=== PATIENT | male | born 1955 | race African-American/Black ===

== ENCOUNTER 2018-10-30 09:05 | Emergency (ER) | payer MEDICARE ==
[~2018-10-30] VITALS: Ht 172.7 cm; Wt 87.0 kg
[2018-10-30] MEDS ORDERED: IBUPROFEN 800MG TABLET PO ONE (13:15)
[2018-10-30] MEDS ORDERED: DIPHENHYDRAMINE 25MG CAPSULE PO ONE (13:15)
[2018-10-30] MEDS ORDERED: VALACYCLOVIR HCL 500MG TABLET PO SCH (13:30)
[2018-10-30 15:31] VITALS: BP 136/83
== END 2018-10-30 15:31 | disposition home or self-care (01) ==
LOC: ER 09:05
DX: G89.29 Other chronic pain (principal); M54.5 Low back pain; B02.9 Zoster without complications; I10 Essential (primary) hypertension; Z98.890 Other specified postprocedural states
CPT/HCPCS: 72131; 99284; Q0163

== ENCOUNTER 2025-02-16 12:28 | Emergency (ER) | payer MEDICAID, MEDICARE ==
[~2025-02-16] VITALS: Ht 162.6 cm; Wt 55.0 kg
[2025-02-16 12:28] VITALS: O2SAT 98
[2025-02-16] MEDS ORDERED: CALCIUM CHLORIDE 1GM/10ML SYR IV ONE (13:00)
[2025-02-16] MEDS: SODIUM CHLORIDE 0.9% 1,000 ML IV ONE (13:00)
[2025-02-16] MEDS ORDERED: DEXTROSE 50% WATER 50ML SYRINGE IV ONE (13:00)
[2025-02-16] MEDS ORDERED: EPINEPHRINE 0.1MG/ML (1:10,000) 10ML SYR ONE (13:00)
[2025-02-16] MEDS ORDERED: SODIUM BICARBONATE 8.4% 50MEQ/50ML SYR IV ONE (13:00)
[2025-02-16] MEDS: PIPERACILLIN/TAZO 3.375G/50ML 50 ML IV ONE (13:01)
[2025-02-16] MEDS: NOREPINEPHRINE 8MG/250ML PMX 250 ML IV PRN (13:01)
[2025-02-16 13:03] VITALS: PULSE 75; RESP 17; O2SAT 90
[2025-02-16] MEDS: VANCOMYCIN 1G PREMIX 200 ML IV ONE (13:07)
[2025-02-16 13:44] LABS: BG BASE EXCESS -13.3 mmol/L (-2.0-3.0); BG CARBOXYHEMOGLOBIN 0.6 % (0.5-1.5); BG DEOXYHEMOGLOBIN 0.1 % (0.0-5.0); BG FRACTION INSPIRED OXYGEN 100; BG HCO3 ACT 12.9 mmol/L (21.0-28.0); BG METHEMOGLOBIN 0.8 % (0.5-1.5); BG OXYGEN SATURATION 99.9 % (94.0-98.0); BG OXYHEMOGLOBIN 98.5 % (94.0-98.0); BG PCO2 30.8 mmHg (35.0-48.0); BG PO2 559.8 mmHg (83.0-108.0); BG SAMPLE SITE LEFT FEMORAL; BG TOTAL HEMOGLOBIN 7.2 g/dL (13.5-17.5); BG TOTAL RESPIRATORY RATE 32 b/min; BG VENT MODE VENT - AC
[2025-02-16] MEDS: MORPHINE SULFATE 100 MG in DEXT 5% WATER 90 ML IV PRN (14:00)
[2025-02-16 14:19] LABS: BASOPHILS % 0.1 % (0.0-2.0); EOSINOPHILS % 0.1 % (0.0-5.0); HEMATOCRIT. 21.9 % (42.0-52.0); LYMPHOCYTES % 26.2 % (20.0-50.0); MEAN CORPUSCULAR HEMOGLOBIN 35.5 pg (28.0-32.0); MEAN CORPUSCULAR VOLUME 118.4 fL (80.0-94.0); MONOCYTES % 1.4 % (2.0-8.0); NEUTROPHILS % 72.2 % (40.0-76.0); PLATELET 74 x1000/uL (130-400); RED BLOOD CELL COUNT 1.85 mill/uL (4.7-6.1); RED CELL DISTRIBUTION WIDTH 17.6 % (11.6-14.6); WHITE BLOOD COUNT 3.3 x1000/uL (4.5-11.0)
[2025-02-16 14:21] LABS: DIFFERENTIAL COMMENT 1; HEMOGLOBIN. 6.6 g/dL (14.0-18.0)
[2025-02-16 14:22] LABS: ADD RBC MORPHOLOGY YES
[2025-02-16 14:23] LABS: CARBON DIOXIDE 17 mEq/L (21-32); CHLORIDE 113 mEq/L (98-107); POTASSIUM 3.4 mEq/L (3.5-5.1)
[2025-02-16 14:24] LABS: CALCIUM 8.5 mg/dL (8.7-10.4)
[2025-02-16 14:25] VITALS: TEMP 32; O2SAT 50
[2025-02-16 14:27] LABS: INR 1.9; PROTHROMBIN TIME 19.2 sec (9.6-11.0)
[2025-02-16 14:29] LABS: CREATININE 1.4 mg/dL (0.6-1.3); GLUCOSE 72 mg/dL (70-105); UREA NITROGEN BLOOD 45 mg/dL (9-23)
[2025-02-16 14:30] VITALS: PULSE 128; RESP 24
[2025-02-16 14:30] LABS: ALANINE AMINOTRANSFERASE 560 IU/L (10-49); ALBUMIN 1.8 g/dL (3.2-4.8); ASPARTATE AMINOTRANSFERASE 575 IU/L (<34)
[2025-02-16] MEDS ORDERED: EPINEPHRINE 5 MG in SODIUM CHLORIDE 0.9% 245 ML IV PRN (14:30)
[2025-02-16 14:31] LABS: BILIRUBIN DIRECT 0.4 mg/dL (<=3.0); BILIRUBIN TOTAL 1.1 mg/dL (0.1-1.0); CREATINE KINASE 145 IU/L (46-171); PROTEIN TOTAL 2.9 g/dL (6.0-8.3)
[2025-02-16] MEDS: EPINEPHRINE 5 MG in SODIUM CHLORIDE 0.9% 245 ML IV PRN (14:39)
[2025-02-16 14:57] LABS: SODIUM 158 mEq/L (136-145); TROPONIN I HIGH SENSITIVITY 206 ng/L (3.0-53)
[2025-02-16] MEDS ORDERED: VASOPRESSIN 20 UNITS in SODIUM CHLORIDE 0.9% 100 ML IV PRN (15:00)
[2025-02-16] MEDS ORDERED: PHENYLEPHRINE 50MG/250ML PMX IV PRN (15:00)
[2025-02-16] MEDS ORDERED: VASOPRESSIN 20 UNIT in SODIUM CHLORIDE 0.9% 99 ML IV PRN (15:00)
[2025-02-16] MEDS ORDERED: PHENYLEPHRINE 50MG/250ML PMX 250 ML IV PRN (15:00)
[2025-02-16] MEDS ORDERED: MORPHINE SULFATE 100 MG in DEXT 5% WATER 90 ML IV PRN (15:15)
[2025-02-16] MEDS ORDERED: ONDANSETRON HCL 4MG/2ML INJ IV PRN (15:15)
[2025-02-16] MEDS: LACTATED RINGERS 1,000 ML IV ONE (15:21)
[2025-02-16 15:46] LABS: ANISOCYTOSIS 1+; HYPOCHROMASIA 2+; PLATELET ESTIMATE DECREASED
[2025-02-16 16:00] VITALS: BP 149/54; PULSE 128; RESP 24
== END 2025-02-16 17:34 ==
LOC: ER 12:37 → EDBEDREQ 14:35 → EDBEDREQSVC 14:36 → CANBEDREQ 16:35 → ER 17:34
DX: I46.9 Cardiac arrest, cause unspecified (principal); J96.00 Acute respiratory failure, unspecified whether with hypoxia or hypercapnia; C16.9 Malignant neoplasm of stomach, unspecified; I10 Essential (primary) hypertension; Z66 Do not resuscitate; Z85.028 Personal history of other malignant neoplasm of stomach; Z79.899 Other long term (current) drug therapy
CPT/HCPCS: 36556; 80076; 80048; 82550; 82962; 83605; 85025; 85610; 86850; 86900; 86901; 87040; 84484; 36415; 84145; 82805; 82375; 92950; 31500; 32551; 99291; 99292; 71045; 93005; 96367; 96368; 96365; 36600; J3490 ×4; J2543; J3370; J7030; 94002; 94070; 94664; 98960